=== PATIENT | male | born 1945 | race Caucasian/White ===

== ENCOUNTER 2017-08-08 22:45 | Inpatient (IN) | payer MEDICARE ==
[~2017-08-08] VITALS: Ht 180.3 cm; Wt 103.1 kg
[~2017-08-08 22:45] MED LIST: ADULT ASPIRIN E81 MG PO; AMLOD/BENAZP1 CA5 PO; ASPIRIN ENTERIC81 MG PO; ASPIRIN325 MG PO; HYDROCO/APAP1 T10 PO; LISINOPRIL20 MG PO; METO50TA52 PO; METOPROL TAR25 MG PO; NITROLINGUAL SPRAY D SL; OMEPRAZOLE20 MG PO; PLAVIX75 MG PO; PRAVACHOL80 MG PO; RANEXA PO; REPATHA140 MG/ML SC
[2017-08-09] VITALS (18 sets, daily range): BP systolic 101–144; BP diastolic 45–82
[2017-08-09 09:31] LABS: HEMATOCRIT 33.6 % (39.0-50.0); HEMOGLOBIN 11.4 g/dl (14.0-18.0); IMMATURE GRANULOCYTES 0.2 % (0.0-1.0); MEAN CELL VOLUME 93.1 fL CALC (80.0-100.0); MEAN CORPUSCULAR HGB 31.6 pG CALC (26.0-32.0); MEAN CORPUSCULAR HGB CONC 33.9 g/L CALC (32.0-36.0); NEUT# 2.46 thou/uL (1.82-7.42); RED BLOOD COUNT 3.61 mill/uL (4.70-6.10); RED CELL DISTRI WIDTH 12.7 % (11.5-15.5)
[2017-08-09 09:52] LABS: ANION GAP 16 (6-22 (CALC)); BUN 15 mg/dL (8-23); BUN/CREATININE RATIO 12 (12-20 (CALC)); CARBON DIOXIDE 25 mmol/l (22-30); CHLORIDE 107 mmol/l (95-108); CREATININE 1.3 mg/dL (0.7-1.3); GFR 55 ML/MIN (>=60 (CALC)); GFR FOR AFR.AMER. > 60 ML/MIN (>=60 (CALC)); SODIUM 143 mmol/l (137-146)
[2017-08-09] MEDS ORDERED: MEDDOSEPAK PO (12:42)
== END 2017-08-09 13:30 | disposition home or self-care (01) | DRG 313 ==
LOC: ICU 22:45
PROVIDERS: ADMIT Internal Medicine; ATTEND Internal Medicine
DX: R07.2 Precordial pain (principal); I25.118 Atherosclerotic heart disease of native coronary artery with other forms of angina pectoris; E78.5 Hyperlipidemia, unspecified; I10 Essential (primary) hypertension; Z95.5 Presence of coronary angioplasty implant and graft; Z87.891 Personal history of nicotine dependence